=== PATIENT | male | born 1960 | race Caucasian/White ===

== ENCOUNTER 2025-06-02 08:03 | Outpatient (REF) | payer BC, SELFPAY ==
--- NOTE | ~2025-06-02 | XR_ITS ---
Exam: X-ray, bilateral knees.XR KNEE 3 VIEWS BILATERAL TECHNIQUE: Three views lower extremity joint, bilateral knees INDICATION: bilateral knee pain COMPARISON: None available. FINDINGS: RIGHT KNEE: There is subtle narrowing of the medial joint space. The intercondylar tubercles are peaked. There are small marginal osteophytes along the medial joint line. There is a small enthesophyte at superior patella. There is no joint effusion. LEFT KNEE: There is mild narrowing of the medial joint space. There are small marginal osteophytes along the medial joint line. There is no joint effusion. There is superior patellar enthesophyte. XR/XR Knee Efra 3V IMPRESSION: Right knee: Mild changes consistent with osteoarthritis. Left knee: Minimal changes consistent with osteoarthritis. Electronically signed by: Kelby Sorenson MD 06/02/2025 09:39 AM INA
[2025-06-02 09:22] LABS: MANUAL DIFF FLAG NO
[2025-06-02 09:45] LABS: Hematocrit 54.9 % (42.0-52.0); Hemoglobin 18.4 g/dl (14.0-18.0); Imm Gran Abs Auto 0.02 X10*3/uL (0.00-0.03); Imm Gran Pct Auto 0.3 % (0.0-0.4); Lymphocytes Absolute Auto 1.9 X10*3/uL (1.2-4.9); Mean Corpuscular HGB Conc 33.5 g/dl (31.0-36.0); Mean Corpuscular Hemoglobin 28.2 pg (27.0-33.0); Mean Corpuscular Volume 84.2 fL (80.0-98.0); NRBC Abs Auto 0.000 X10*3/uL (0.0-0.012); NRBC Pct Auto 0.0 /100WBC (0.0-0.2); Platelet Count 189 X10*3/uL (160-400); Red Blood Count 6.52 X10*6/uL (4.60-5.80); White Blood Count 5.8 X10*3/uL (4.8-10.8)
--- OUTSIDE RECORDS SUMMARY | 2025-06-02 09:46 | XMS_ITS | Data Portability ---
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 Otologic exam on the right shows translucent TM with well aerated middle ear space. Previous [place] prosthesis continues to be eroding through TM but there is no retraction or perforation of the drum. Audiometric testing was obtained today showing closure of conductive gap on the left side with only mild mixed loss in the higher tones. Recommended he have his hearing aids adjusted. Will keep his appointment as scheduled with Dr. Bond. All questions were answered. [email or web address] Not available 11/26/2023 15:39:09 01/15/2024 01/15/2024 Both ears appear stable today with retraction of the right and prosthesis exposure on the left. Currently he is quite pleased with how his ears are feeling and he is very happy with his amplification devices. At this point the ears appear to be in a steady state and I would not recommend any additional intervention. Recommend follow-up in 1 year for surveillance and he will continue to follow-up with [place] in audiology for hearing aid maintenance. [email or web address] Not available 01/15/2024 09:19:43 01/13/2025 01/13/2025 Both ears appear stable today with retraction of the right and prosthesis exposure on the left. On the left side, there was some debris collection and purulence around the partially extruded prosthesis. Recommend 7 days of topical Ciprodex drops to be used twice a day. He will let me know if he has any residual symptoms following treatment. Currently he is quite pleased with how his ears are feeling and he is very happy with his amplification devices. At this point the ears appear to be in a steady state and I would not recommend any additional intervention. Recommend follow-up in 1 year for surveillance and he will continue to follow-up with [facility] in audiology for hearing aid maintenance. [email or web address] Not available 01/13/2025 09:23:59 Plan of Treatment Reminders Order Date Submit Date Provider Last Modified By Organization Details Last Modified Time Details Appointments Establish ed 10 2025 08:30A M RICHARD BOND MD Not available Not available Not available Lab None recorded. Referral None recorded. Procedures None recorded. Surgeries None recorded. Imaging None recorded. Medication Orders ciproflox acin 0.3 %-dexamet hasone 0.1 % ear drops,rubin pension 2024 025 [facility] #[id number], [address] [place] [address], [id number], 01/13/2025 09:21:19 Patient TargetsNo targets recorded. Patient InstructionsNo instructions recorded. Reason for Referral None Reported. Results Created Date Observation Date Name Description Value Unit Range Abnormal Flag Note LastModifiedBy Organization Detail LastModifiedTime 11/27/19 24 11/26/2023 audio gram No observ ation record ed. [email or web address] Not Available 2023 15:50:10 02/18/20 24 08/21/2023 imagi ng/di agnos tic resul t No observ ation record ed. [email or web address] Not Available 05:13:09 02/18/20 24 01/14/2023 imagi ng/di agnos tic resul t No observ ation record ed. [email or web address] Not Available 05:13:46 02/18/20 24 01/14/2023 imagi ng/di agnos tic resul t No observ ation record ed. [email or web address] Not Available 05:13:48 02/18/2001/14/2023 imagi ng/di agnos tic resul t No observ ation record ed. [email or web address] Not Available 05:13:54 02/18/20 24 08/12/2023 audio gram No observ ation record ed. [email or web address] Not Available 05:14:23 02/18/20 24 09/24/2023 audio gram No observ ation record ed. [email or web address] Not Available 05:14:29 02/18/20 24 03/14/2023 audio gram No observ ation record ed. [email or web address] Not Available 05:14:53 02/18/20 24 03/25/2023 audio gram No observ ation record ed. [email or web address] Not Available 05:15:03 02/18/20 24 04/11/2023 audio gram No observ ation record ed. [email or web address] Not Available 05:15:05 02/18/2005/02/2023 audio gram No observ ation record ed. [email or web address] Not Available 05:15:08 Result Notes None recorded. 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, nasal cavity and accessor y sinuses; Note: Date Diagnose d: 7 6:19 PM (D14.0) Not Available [facility] 4 02:49:52 Acute myringit is of right ear 22151188393 29062 Completed 201701/30/2024 Acute myringit is, right ear; Note: Date Diagnose d: 8 4:04 PM (H73.001 ) Not Available [facility] 4 02:49:55 Bilatera l disorder of Eustachi an tubes 43522129703 04561 Active 2017 Other specifie d disorder s of Eustachi an tube, bilatera l; Note: Date Diagnose d: 8 4:04 PM (H69.83) Not Available [facility] 4 02:49:53 Mixed conducti ve and sensorin eural hearing loss, bilatera l 817547292 Active 2017 Mixed conducti ve and sensorin eural hearing loss, bilatera l; Note: Date Diagnose d: 8 4:50 PM (H90.6) Not Available [facility] 4 02:49:56 Otorrhea of right ear 48953337423 13571 Completed 201801/30/2024 Otorrhea , right ear; Note: Date Diagnose d: 03/04/2019 2:56 PM (H92.11) Otorrh ea, right ear; Note: Date Diagnose d: 8 4:04 PM (H92.11) ; Start Date : 03/24/20 Not Available [facility] 4 02:49:55 Superfic ial mycosis 543483226 Completed 201801/30/2024 Other specifie d superfic ial mycoses; Note: Date Diagnose d: 9 5:39 PM (B36.8) Not Available [facility] 4 02:49:56 Finding of device of ear 650462042 Active 2022 Presence of other otologic al and audiolog ical implants ; Note: Date Diagnose d: 3 12:54 PM (Z96.29) Not Available [facility] 4 02:49:51 Chronic serous otitis media of right ear 744932521 Active 2022 Chronic serous otitis media, right ear; Note: Date Diagnose d: 3 12:53 PM (H65.21) Not Available [facility] 4 02:49:56 Adhesive middle ear disease 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 Active 2022 Adhesive middle ear disease, bilatera l; Note: Date Diagnose d: 3 11:16 AM (H74.13) Not Available [facility] 4 02:49:54 Partial loss of ear ossicles 66859520 Active 2023 Partial loss of ear ossicles , bilatera l; Note: Date Diagnose d: 4 9:58 AM (H74.323 ) Not Available [facility] 4 02:49:53 Otorrhea of left ear 09656643490 36048 Completed 202301/30/2024 Otorrhea , left ear; Note: Date Diagnose d: 4 9:58 AM (H92.12) RICHARD BOND MD 100 [facility] 100, [place], [address] , [facility] 5 09:20:44 Acute serous otitis media of left ear 59677607400 90686 Active 2023 Acute serous otitis media, left ear; Note: Date Diagnose d: 4 2:46 PM (H65.02) Not Available [facility] 4 02:49:54 Mixed conducti ve AND sensorin eural hearing loss 95198616 Active 2023 LIU CRUZ, AUD 100 [facility] 100, [place], [address] , [place] - [facility] 4 15:16:00 Sensorin eural hearing loss in right ear 01433617959 100 Active 2023 RICHARD BOND MD 100 [facility] 100, [place], [address] , [place] - [facility] 4 09:11:42 Sensorin eural hearing loss of bilatera l ears 441344224 Active 2024 JAMIA CAROLINA, AUD 100 [facility] 100, [place], [address] , [place] - [facility] 5 10:54:24 Otorrhea of left ear 88890274036 29220 Active 2024 Otorrhea , left ear; Note: Date Diagnose d: 4 9:58 AM (H92.12) RICHARD BOND MD 100 [facility] 100, [place], [address] , [place] - [facility] 5 09:20:44 Problem Notes None recorded. Procedures Surgical History Date Name Laterality Status Provider Name and Address Organization Details Recorded Time 5 EAC debris removal with microscope completed RICHARD BOND MD 100 [facility],[address], [address], [place] - [facility] 01/13/2025 09:24:12 4 Comp Audio with Tymps - 77970 & 87179 completed NASREEN ESQUIVEL 100 [facility] 100, [place], [address], [place] - [facility] 11/26/2023 15:13:54 Kidney Stone Removal completed Edith Dee [place] - [facility] 01/15/2024 09:02:15 Imaging Results None recorded. Procedure Notes None recorded. Medical Equipment None Reported. Allergies No known drug allergies Medications Name Sig Start Date Stop Date Status Note LastModified by Organization Details LastModified Time amoxicill in 500 mg capsule TAKE 1 CAPSULE BY MOUTH THREE TIMES A DAY FOR 10 DAYS 01/14 completed Not Available Not Available Not Available promethaz ine-DM 6.25 mg-15 mg/5 mL oral syrup TAKE 5 MLS BY MOUTH EVERY 6 HOURS NEEDED FOR COUGH, NOT TO EXCEED 6 DOSES/DA Y 01/10 completed Not Available Not Available Not Available neomycin- polymyxin -hydrocor t 3.5 mg/mL-10, 000 unit/mL-1 % ear solution 07/17 completed Medicati on ID: [id number] D uration Value: 7 Brand Name: neomycin -polymyx in-HC Se nd Method: E-Prescr ibed Sub s Allowed: subs OK Medic ationGen ericName : neomycin -polymyx in-HC Not Available Not Available Not Available atorvasta tin 20 mg tablet 2024 active Not Available Not Available Not Avai lable azithromy sugey 250 mg tablet TAKE 2 TABLETS ON DAY ONE. TAKE 1 TABLET DAILY ON DAYS 2-5. 01/10 completed Not Available Not Available Not Available benzonata te 200 mg capsule TAKE 1 CAPSULE BY MOUTH 3 TIMES A DAY FOR 14 DAYS NEEDED FOR COUGH 01/10 completed Not Available Not Available Not Available prednison e 20 mg tablet TAKE 2 TABLETS BY MOUTH EVERY DAY FOR 5 DAYS 01/10 completed Not Available Not Available Not Available sildenafi l 100 mg tablet 07/17 completed Medicati on ID: [id number] D uration Value: 30 Brand Name: analia singh Send Method: E-Prescr ibed Sub s Allowed: subs OK Medic ationGen ericName : sildenaf il Not Available Not Available Not Available metformin 1,000 mg tablet active Not Available Not Available Not Available tacrolimu s 0.03 % topical ointment 01/14 completed Medicati on ID: [id number] B rand Name: tacrolim us Send Method: E-Prescr ibed Sub s Allowed: subs OK Medic ationGen ericName : tacrolim us Medic ation ID: [id number] B rand Name: tacrolim us Send Method: E-Prescr ibed Sub s Allowed: subs OK Medic ationGen ericName : tacrolim us Not Available Not Available Not Available clotrimaz ole 1 % topical solution 01/14 completed Medicati on ID: [id number] D uration Value: 14 Prescri bed By Name: TAMERA Jonhson nd Name: jackson gomez Method: E-Prescr ibed Sub s Allowed: subs OK Speci al Instruct ion: 5 drops to affected ear twice a day Medi cationGe nericNam e: clotrima zole Med ication ID: [id number] D uration Value: 14 Prescri bed By Name: TAMERA Johnson nd Name: clotrima zole Sen d Method: E-Prescr ibed Sub s Allowed: subs OK Speci al Instruct ion: 5 drops to affected ear twice a day Medi cationGe nericNam e: clotrima zole Not Available Not Available Not Available omeprazol e 20 mg capsule,d elayed release active Not Available Not Available Not Available codeine 10 mg-guaife nesin 100 mg/5 mL oral liquid 10 ML BY MOUTH DAILY AT BEDTIME NEEDED FOR COUGH 01/10 completed Not Available Not Available Not Available mometason e 0.1 % topical ointment 01/10 completed Not Available Not Available Not Available Microlet Lancet 01/13 completed Not Available Not Available Not Available amoxicill in 875 mg-potass ium clavulana te 125 mg tablet TAKE 1 TABLET BY MOUTH EVERY 12 HOURS FOR 10 DAYS 01/10 completed Not Available Not Available Not Available Laxative (bisacody l) 5 mg tablet,de layed release 01/10 completed Not Available Not Available Not Available TobraDex 0.3 %-0.1 % eye drops,rubin pension 4 drop 01/14 completed Medicati on ID: [id number] D uration Value: 14 Prescri bed By Name: TAMERA Johnson nd Name: TobraDex Send Method: E-Prescr ibed Sub s Allowed: subs OK Speci al Instruct ion: 4 drops in affected ear bid Medi cationGe nericNam e: TobraDex Medicat ion ID: [id number] D uration Value: 14 Prescri bed By Name: TAMERA Johnson nd Name: TobraDex Send Method: E-Prescr ibed Sub s Allowed: subs OK Speci al Instruct ion: 4 drops in affected ear bid Medi cationGe nericNam e: TobraDex Not Available Not Available Not Available ciproflox acin 0.3 %-dexamet hasone 0.1 % ear drops,rubin pension INSTILL 4 DROPS TWICE A DAY INTO LEFT EAR FOR 7 DAYS. active Not Available Not Available No t Available Ranitidin e Hcl 07/17 completed Medicati on ID: [id number] D uration Value: 30 Brand Name: ranitidi ne hcl Send Method: E-Prescr ibed Sub s Allowed: subs OK Medic ationGen ericName : ranitidi ne hcl Not Available Not Available Not Available GaviLyte- G 236 gram-22.7 4 gram-6.74 gram-5.86 gram oral solution 01/13 completed Not Available Not Available Not Available Contour Next Test Strips 01/13 completed Not Available Not Available Not Available Jardiance 25 mg tablet active Medicati on ID: [id number] B rand Name: Jardianc e Send Method: E-Prescr ibed Sub s Allowed: subs OK Medic ationGen ericName : Zoe guzman Not Available Not Available Not Available Trulicity 1.5 mg/0.5 mL subcutane ous pen injector 01/13 completed Not Available Not Available Not Available Contour Next One Meter 01/13 completed Not Available Not Available Not Available Trulicity 3 mg/0.5 mL subcutane ous pen injector 10/29 completed Not Available Not Available Not Available Sodium Fluoride 5000 Dry Mouth 1.1 % dental paste BRUSH 1 TO 2 TIMES PER DAY. DO NOT RINSE 01/13 completed Not Available Not Available Not Available Skyrizi 150 mg/mL subcutane ous pen injector active Not Available Not Available Not Available Mounjaro 15 mg/0.5 mL subcutane ous pen injector 2024 active Not Available Not Available Not Avai lable Vitals None Recorded Social History Question Answer Notes LastModified by Organizat ion Details LastModified Time Tobacco Smoking Status Former Smoker Edith juarez [place] - [facility] 01/13/2025 09:00:04 How Many Years Have You Consumed Alcohol? 48 [email or web address] Information not available 01/13/2025 What Type Of Ict Teacher Do You Use? None [email or web address] Information not available 01/13/2025 When Did You Quit Smoking? 16+yearssinc elastcigaret te [email or web address] Information not available 01/13/2025 Do You Have Any Pets? No [email or web address] Information not available 01/13/2025 At What Age Did You Start Smoking Tobacco? 17 [email or web address] Information not available 01/13/2025 Are You Passively Exposed To Smoke? No [email or web address] Information not available 01/13/2025 Are There Any Smokers In Your House? No [email or web address] Information not available 01/13/2025 How Much Tobacco Do You Smoke? 1 PPD [email or web address] Information not available 01/13/2025 How Many Years Have You Smoked Tobacco? 17 [email or web address] Information not available 01/13/2025 Sex: Unknown Functional Status Question Answer Note LastModified by Organization Details LastModified Time How many times per week do you consume alcohol? Less than 1 time per week [email or web address] Inform ation not available 01/13/2025 Do you use any illicit or recreational drugs? No [email or web address] Information not available 01/13/2025 Do you or have you ever used any other forms of tobacco or nicotine? No [email or web address] Information not available 01/13/2025 What is your level of alcohol consumption? Occasional Information not available 01/13/2025 What type of noise exposure are you exposed to? noExposureToExcessiveNoise [email or web address] Infor mation not available 01/13/2025 Mental Status None recorded. Family History Nothing Reported. Medical History Condition Response Allergies/Hayfever N Heart Problems N Anxiety N Tonsil Infections N Emphysema N Migraines N Thyroid Problems N Glaucoma N Depression N COPD N Developmental Delay N Nasal or Sinus Problems N Anemia N Immune System Disorder N Anesthesia Complications N Heart Attack ([place]) N Other Skin Condition Y Diabetes Y Rhinitis N Bleeding Disorder N Food Allergy N Arthritis N Hearing Loss Y Hyperlipidemia N Cancer N Stroke N Dementia N Nasal polyps N Asthma N High Cholesterol N Sleep Disorder N GERD/Reflux Y Liver Disease N Headaches N Fibromyalgia N Hypertension N Speech Delay N Kidney Disease N Past Encounters Encounter ID Performer Location Encounter Start Date Encounter Closed Date Diagnosis/Indication Diagnosis SNOMED-CT Code Diagnosis ICD10 Code Diagnosis IMO Codes Diagnosis Note [id number] MILA CASTELLON PA-C [facility] [address] [address] 11/26/2023 14:30:42 11/26/2023 15:33:46 Sensorineural hearing loss [id number] H90.A21 Audiologic al evaluation results:Ri ght ear:Mild to moderate SNHL with excellent speech discrimina tion.Left ear:Mild to profound MHL with excellent speech discrimina tion. Tympanomet ry:Right Ear:Type AdLeft Ear:Type Ad Mixed cond uctive AND sensorineural hearing loss 54632836 H90.A32 [id number] NASREEN SKINNER [place] [facility] [place] [address] [place] [address] [address] 12/25/2023 11:30:20 01/19/2024 14:58:11 Sensorineural hearing loss of bilateral ears 607905615 H90.3 [id number] RICHARD BOND MD [facility] [address] [address] 01/15/2024 08:57:42 01/15/2024 09:19:03 Adhesive middle ear disease 3689498 H74.13 Mixed cond uctive AND sensorineural hearing loss 64257669 H90.A32 Partial lo ss of ear ossicles 56598243 H74.323 Bilateral disorder of Eustachian tubes 0397032902 818882 H69.83 Sensorineu ral hearing loss in right ear 3572049814 9100 H90.A21 [id number] NASREEN SKINNER [facility] [address] [address] 11/01/2024 10:53:58 11/02/2024 18:32:20 Sensorineural hearing loss of bilateral ears 310426142 H90.3 [id number] RICHARD BOND MD [facility] [address] [address] 01/13/2025 08:50:38 01/13/2025 09:23:47 Adhesive middle ear disease 1258485 H74.13 Partial lo ss of ear ossicles 31974808 H74.323 Bilateral disorder of Eustachian tubes 8521166727 443117 H69.83 Sensorineu ral hearing loss in right ear 0288098425 9100 H90.A21 Mixed cond uctive AND sensorineural hearing loss 45739561 H90.A32 Otorrhea of left ear 320 0190333 658046 H92.12 [id number] Health Concerns Section Related Observation LastModified by Organization Detai ls LastModified Time None Recorded Concern Status LastModified by Organization Details LastModified Time None Recorded Advance Directives Directive None Recorded Payers Insurance Date Sequence Insurance Name Policy Number Policy Elliott Covered Member ID Elliott Member ID Guarantor Name 01/13/2025 1 NEREYDA (PPO) [id number] Jolene S Sugey [id number] [place] 11/01/2024 1 [employer]-IMANI ARGUETA (PPO) [id number] Jolene [address] [place] [id number] [place] Notes Date Note Type Note Provider Name and Address Organization Details Recorded Time 4 text/html ROS as noted in the HPI 63-year-old male with longstanding ETD presents following eustachian tube dilation with Dr. Bond. He has not noticed much difference in his hearing but is overall doing well. Has hearing aids which she is very pleased with. JOY RUSSELL MD 100 [facility],[place] [address], [place], [address], [place] - [facility] 11/26/2023 16:45:36 4 text/html Update post op audio in [facility] and reprogrammed aids. Ran real ear. Switched him from small power domes to small vented domes. Gave him extra domes (including small power and med vented in case he runs into any comfort/fit issues). He will call if he needs additional adjs.Brother recently had a heart attack so he has been making many trips to [facility] to visit. NASREEN SKINNER 100 [facility],[place] [address], [place], [address], [facility] - [facility] 12/25/2023 13:01:21 4 text/html Pt with history of chronic ETD and left tympano-ossiculoplasty in 2010. Patient's right ear was noted to have a posterior superior retraction and myringostapediopexy with middle ear effusion. The left ear has been demonstrating retraction around the ossiculoplasty prosthesis and there has been some prosthesis exposure. In light of the signs of chronic eustachian tube dysfunction, patient underwent bilateral balloon dilation of the eustachian tube 10/22/2023. Patient returns today for follow-up. Currently using binaural amplification through our office which was recently adjusted to match his postoperative hearing which is much better. Patient notes no muffled hearing, popping or clicking in either ear. RICHARD BOND MD 100 [facility],[place] [address], [place], [address], [facility] - [facility] 01/15/2024 09:20:18 5 text/html C/o aids slipping out and not being loud enough. Switched him to Version 5 receivers- gave him cerustops along with printed out instructions. Also added anchors and switched him from sm vented to med vented domes. Gave him extra sm, med and large vented domes. Turned up aids per pt request. He will call if he needs any adjs.About to start with a kitchen remodel. NASREEN SKINNER 100 [facility],[place] [address], [place], [address], [place] - [facility] 11/01/2024 10:59:02 text/html Pt with history of chronic ETD and left tympano-ossiculoplasty in 2010. Patient's right ear was noted to have a posterior superior retraction and myringostapediopexy with middle ear effusion. The left ear has been demonstrating retraction around the ossiculoplasty prosthesis and there has been some prosthesis exposure. In light of the signs of chronic eustachian tube dysfunction, patient underwent bilateral balloon dilation of the eustachian tube 10/22/2023. Patient returns today for follow-up. Currently using binaural amplification through our office which was recently adjusted to match his hearing needs. Patient notes no muffled hearing, popping or clicking in either ear. Last audiogram October 2023. RICHARD BOND MD 100 [facility],[place] [address], [place], [address], [facility] - [facility] 01/13/2025 09:24:39
--- OUTSIDE RECORDS SUMMARY | 2025-06-02 09:46 | XMS_ITS | Data Portability ---
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 He had surgery on his achilles in March and has been going to Physical Therapy, he believes he caught Covid there. He has not been taking any steroids. His symptoms began on Wednesday August 05, 2020 and include fevers off-and-on, nausea, poor appetite, body aches specifically backache. He denies any chest pain, shortness of breath or cough. Denies any vomiting or diarrhea. He reports he is staying hydrated and drinking Gatorade and water. Denies any urinary symptoms. No headaches or rashes. Exam: Patient is alert, nontoxic appearing in no apparent distress No erythema or exudate noted in the oropharynx. TMs and canals are clear without any signs of infection. No lymphadenopathy. Moist mucous membranes Normal heart sounds, no peripheral edema. Palpable pulses. Lungs are clear, diminished at bases, no rales, rhonchi or wheezing. Breathing is unlabored. Abdomen is soft, nontender positive bowel sounds. (-) CVA tenderness No rashes DDx considered, but not limited to: Covid 19 virus most likely Flu considered- less likely Pneumonia considered- no cough PE considered- no tachycardia or CP ACS considered- no CP Work up/Results: Physical exam only Plan/Discussion: Discussed with patient and his his symptoms are consistent with the COVID-19 virus. Vitals are stable. Patient encouraged to stay hydrated. Encouraged to self prone as tolerated. Increased appetite as tolerated. Continue to take ibuprofen and Tylenol as needed for back ache and fevers. If he develops trouble breathing or chest pain he should be seen in the emergency department otherwise symptom management reviewed. The patient is advised to make an appt with PCP in 3-5 days to discuss ongoing symptoms/ further management if needed. The patient is also advised to go to the ED immediately for any worsening symptoms. The patient understood and agreed with this plan. The patient was given discharge instructions and all questions were answered prior to DH team departure. In order to obtain further information and compare any laboratory results/values, I have accessed patient records on the [facility] [facility]. This information was pertinent in my medical decision making today. Proper Personal Protective Equipment (PPE), including gloves, eye protection, N95 mask, gown, and shoe covers were donned and doffed appropriately and all equipment cleaned using approved technique with germicidal disposable wipes prior to and after care of this patient according to [facility]'s infection prevention protocols. Time On Scene with Patient: 00:51:17 [id number] Not available 08/11/2020 17:27:59 Plan of Treatment Reminders Order Date Submit Date Provider Last Modified By Organization Details Last Modified Time Details Appointments None record ed. Lab None record ed. Referral None record ed. Procedures None record ed. Surgeries None record ed. Imaging None record ed. Medication Orders None record ed. Patient TargetsNo targets recorded. Patient Instructions Encounter Date Encounter Id Patient Instructions Last Modified By Organization Details Last Modified Time 08/11/2020 [id number] Pre printed instructions provided. What is coronavirus disease 2019? Coronavirus disease 2019 (COVID-19) is a respiratory illness that can spread from person to person. The virus that causes COVID-19 is a novel coronavirus that was first identified during an investigation into an outbreak in [facility]. Can I get COVID-19? Yes. COVID-19 is spreading from person to person in parts of the world. Risk of infection from the virus that causes COVID-19 is higher for people who are close contacts of someone known to have COVID-19, for example household members. Other people at higher risk for infection are those who live in or have recently been in an area with ongoing spread of COVID-19. How does COVID-19 spread? The virus that causes COVID-19 probably emerged from an animal source, but is now spreading from person to person. The virus is thought to spread mainly between people who are in close contact with one another (within about 6 feet) through respiratory droplets produced when an infected person coughs or sneezes. It also may be possible that a person can get COVID-19 by touching a surface or object that has the virus on it and then touching their own mouth, nose or possibly their eyes, but this is not thought to be the main way the virus spreads. What are the symptoms of COVID-19? Patients with COVID-19 have mild to severe respiratory illness with symptoms of: fever cough shortness of breath What are severe complications from this virus? Some patients have pneumonia in both lungs, multi-organ failure and in some cases . People can help protect themselves from respiratory illness with everyday preventative actions. Avoid close contact with people who are sick. Avoid touching your eyes, nose, and mouth with unwashed hands. Wash your hands often with soap and water for at least 20 seconds. Use an alcohol-based hand cold storage supervisor that contains at least 60% alcohol if soap and water are not available If you are sick, to keep from spreading respiratory illness to others, you should Stay home when you are sick. Cover your cough or sneeze with a tissue, then throw the tissue in the trash. Clean and disinfect frequently touched objects and surfaces. Is there a vaccine? There is currently no vaccine to protect against COVID-19. The best way to prevent infection is to take everyday preventive actions, like avoiding close contact with people who are sick and washing your hands often. Is there a treatment? There is no specific antiviral treatment for COVID-19. People with COVID-19 can seek medical care to help relieve symptoms. FOR MORE INFORMATION: [email or web address] Not available 08/11/2020 17:22:28 Reason for Referral None Reported. Procedures Surgical History Date Name Laterality Status Provider Name and Address Organization Details Recorded Time 08/11/19 21 Medication Review completed Betty Wolf NP [address], [place], [address], [place] [facility] 08/11/2020 16:51:20 Imaging Results None recorded. Procedure Notes None recorded. Medical Equipment None Reported. Allergies No known drug allergies Medications Name Sig Start Date Stop Date Status Note LastModified by Organization Details LastModified Time vitamin d3 125 mcg (5000 ut active Not Available Not Available Not Available ibuprofen 800 mg tablet TAKE 1 TABLET BY MOUTH 3 TIMES A DAY WITH FOOD OR MILK active Not Available Not Available No t Available meloxicam 15 mg tablet TAKE 1 TABLET BY MOUTH EVERY DAY active Not Available Not Available No t Available tramadol 50 mg tablet TAKE 1 TABLET BY MOUTH TWICE A DAY NEEDED FOR PAIN CAUTION THIS IS SEDATING active Not Available Not Available No t Available acetaminophe n 500 mg tablet active Not Available Not Available Not Available oxycodone-ac etaminophen 5 mg-325 mg tablet TAKE 1 TABLET BY MOUTH EVERY 6 HOURS NEEDED FOR PAIN active Not Available Not Available No t Available aspirin 325 mg tablet,delay ed release active Not Available Not Available N ot Available cholecalcife rol (vitamin D3) 125 mcg (5,000 unit) capsule active Not Available Not Available Not Available oxycodone 5 mg tablet TAKE 1 TABLET BY MOUTH 3 TIMES A DAY NEEDED FOR PAIN DO NOT DRIVE ON THIS MEDICATION active Not Available Not Available N ot Available Vitals Date Recorded Oxygen saturation Body temperature Heart rate Respiratory rate Systolic And Diastolic Provider Name and Address Organization Details Last Updated DateTime 95 % 98.2 [degF] 72 /min 18 /min 132/62 mm[Hg] Not Available [facility] 16:58:57 Social History Question Answer Notes LastModified by Organizat ion Details LastModified Time Tobacco Smoking Status Never Smoker Betty Wolf NP [address] [place] [address], [address], [place] - [facility] 08/11/2020 16:28:23 How Much Tobacco Do You Smoke? No [email or web address] Information not available 08/11/2020 Sex: Unknown Functional Status None recorded. Mental Status None recorded. Family History Relationship Description Onset Age of this Age Resolved Age Notes LastModified by Organization Details LastModified Time Father Coronary arterioscler osis [email or web address] Not available 2020 17:09:08 Medical History Condition Response Coronary Artery Disease N COPD N Depression N Cancer N Stroke N High Cholesterol N Kidney Disease N Diabetes N Asthma N Pulmonary Embolism N Hypertension N Past Encounters Encounter ID Performer Location Encounter Start Date Encounter Closed Date Diagnosis/Indication Diagnosis SNOMED-CT Code Diagnosis ICD10 Code Diagnosis IMO Codes Diagnosis Note [id number] Betty Wolf NP [facility] [address] [place] [address] 08/11/2020 16:32:53 08/11/2020 18:31:07 COVID-19 [id number] U07.1 Health Concerns Section Related Observation LastModified by Organization Detai ls LastModified Time None Recorded Concern Status LastModified by Organization Details LastModified Time None Recorded Advance Directives Directive None Recorded Payers Insurance Date Sequence Insurance Name Policy Number Policy Elliott Covered Member ID Elliott Member ID Guarantor Name 08/11/2020 1 *SELF PAY* Aly Grayling [id number] Aly Grayling 01/25/2022 1 [employer] [id number] Aly Ashton [id number] Aly Grayling Notes Date Note Type Note Provider Name and Address Organization Details Recorded Time 08/11/2020 text/html COVID-19 Symptoms October 2019Reported by Patient 60yo male who is new to with a PMHx of Barretts esophagus and GERD being seen today for Covid symptoms. His symptoms began Friday08/05/20. He tested positive today. For the past 6 days he has had fevers ranging from 99.8-101.8, nausea, poor appetite, bodyaches & dizziness. He has been drinking gatorade and staying hydrated. Today he reports feeling better and had 2 PB&J sandwiches. He has had no vomitting or diarrhea. No CP, cough or SOB. Betty Wolf NP [address], [place], [address], [place] [facility] 08/11/2020 18:27:47
[2025-06-02 10:20] LABS: Alanine Aminotransferase 31 U/L (0-40); Albumin Level 4.8 g/dL (3.5-5.0); Alkaline Phosphatase 86 U/L (39-117); Anion Gap 12 (12-20); Aspartate Amino Transferase 26 U/L (5-37); Blood Urea Nitrogen 16 mg/dL (9-16); Calcium 9.3 mg/dL (8.4-10.2); Carbon Dioxide 27 mmol/L (22-29); Chloride 107 mmol/L (96-108); Cholesterol 163 mg/dL (<200); Estimated Glomerular Filt Rate > 60; HDL Cholesterol 39 mg/dL (>40); Potassium 4.1 mmol/L (3.3-5.1); Sodium 142 mmol/L (135-145); Total Protein 7.6 g/dL (6.5-8.0); Triglycerides 115 mg/dL (<150)
[2025-06-02 10:43] LABS: PSA,Total (Free>4and<10) 1.01 ng/mL (0.00-4.00)
[2025-06-03 13:57] LABS: Iron 75 mcg/dL (45-160); Percent Iron Saturation 26 % (15-50); Total Iron Binding Capacity 294 mcg/dL (228-428); Unsaturated Iron Binding 219 ug/dL
[2025-06-03 14:11] LABS: Ferritin 629 ng/mL (20-250)
== END 2025-06-02 08:04 | disposition home or self-care (01) ==
LOC: HO.LAB 08:03
PROVIDERS: PCP Internal Medicine; Visit Provider Internal Medicine
DX: Z12.5 Encounter for screening for malignant neoplasm of prostate (principal); D58.2 Other hemoglobinopathies; E78.2 Mixed hyperlipidemia; E11.9 Type 2 diabetes mellitus without complications; E66.9 Obesity, unspecified; N52.9 Male erectile dysfunction, unspecified; M25.561 Pain in right knee; M25.562 Pain in left knee; G89.29 Other chronic pain; Z68.33 Body mass index [BMI] 33.0-33.9, adult
CPT/HCPCS: 36415; 73562; 80053; 80061; 82043; 82570; 82728; 83036; 83540; 84153; 85025; 96127

== ENCOUNTER 2025-06-02 08:03 | Outpatient (AMB) | payer BC, SELFPAY ==
--- NOTE | 2025-06-02 08:06 | MHC.PC.OV ---
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 Accompanied by: Self / Same As Patient Allergies No Known Allergies Allergy (Verified 06/02/25 08:07) Medication List - Last Reconciled 06/02/25 by Sandra Qureshi MD atorvastatin 20 mg PO DAILY empagliflozin (Jardiance) 25 mg PO DAILY lancets (Microlet Lancet) As directed metformin 1,000 mg PO BID omeprazole 20 mg PO DAILY risankizumab-rzaa (Skyrizi) mg subcut tirzepatide (Mounjaro) mg subcut Tobacco use date assessed: 06/02/25 Fall risk assessment: No Falls in past year Last assessed Fall Risk: 06/02/25 Dental Screening Dental Screen Date: 06/02/25 Did you have a dental visit in the last 12 months?: Yes Did you have a dental problem in the last 6 months where you did not have access to dental care?: No HPI HPI Comments History of Present Illness Details The patient is a 65 year old male presenting to re-establish care and for follow-up on diabetes. Type 2 Diabetes Mellitus: The patient is following up on his diabetes management and has experienced weight loss, down from 250 lbs to 235 lbs recently, which he attributes to Mounjaro. He notes a decreased appetite since starting the medication, though he has not been more physically active. His fasting morning blood glucose levels are typically between 130 and 145 mg/dL, and his most recent reading was 142 mg/dL. His last A1c was 6.3 in October 2024. He admits to late-night snacking on items such as peanut butter pretzels and peanut M&Ms, which he notices affects his morning glucose readings. Chronic Diarrhea: The patient reports experiencing daily liquid diarrhea for the past 1.5 to 2 years. The episodes occur within 30 minutes of eating, regardless of the food consumed, and he denies any blood in the stool. He is prescribed metformin 1000 mg twice a day but has been taking only one pill daily. His last colonoscopy was within the last year and was normal. 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 Oliveira's esophagus- followed by GI Dr. Gilliland, has had normal endoscopies in recent years Psoriasis: The patient uses Skyrizi for psoriasis, administered every 12 weeks. He reports excellent response to the treatment, with complete resolution of skin markings and no flaking. Bilateral Knee Pain: The patient reports significant bilateral knee pain, primarily with motions such as bending down and standing up. He has a history of jobs requiring prolonged standing, which he believes contributed to the issue. The pain can be severe enough that he avoids certain movements. His left leg swells by the afternoon on days he is active, but this resolves with about an hour of elevation. Social History: - Hydration: Drinks approximately 2 gallons of water per day. [facility] Medical History (Updated 06/03/25 @ 17:29 by Sandra Qureshi MD) Elevated hemoglobin Bilateral knee pain Barretts esophagus Mixed hyperlipidemia Type 2 diabetes mellitus in patient with obesity Psoriasis Surgical History H/O toe surgery History of ear surgery History of colonoscopy (~09/17/23) Family History (Updated 06/02/25 @ 08:17 by Keyonna Alejo MA) Maternal Uncle No problems noted. Mother Hx of CABG Primary hypertension Father No problems noted. Other Borderline diabetes Mixed hyperlipidemia Stroke Social History Housing: House Patient Tobacco Use Status: Former Tobacco user e-Cigarette/Vaping Use: Former Use service: No Current occupational status: retired Cognitive needs: No Hearing needs: No Vision needs: No Questionnaire PHQ-9 Over the last 2 weeks, how often have you been bothered by any of the following problems? 1. Little interest or pleasure in doing things: not at all 2. Feeling down, depressed, or hopeless: not at all 3. Trouble falling or staying asleep, or sleeping too much: not at all 4. Feeling tired or having little energy: not at all 5. Poor appetite or overeating: not at all 6. Feeling bad about yourself - or that you are a failure or have let yourself or your family down: not at all 7. Trouble concentrating on things, such as reading the newspaper or watching television: not at all 8. Moving or speaking so slowly that other people could have noticed. Or the opposite - being so fidgety or restless that you have been moving around a lot more than usual: not at all 9. Thoughts that you would be better off or of hurting yourself in some way: not at all Total score: 0 Depression Screening Interpretation: Negative Depression Screening Done: Yes Source: Developed by Drs. Toy Mejia, Katharine Gruber, Irwin Larson and colleagues, with an educational royer from [employer]. Thrive Questionnaire Date Thrive assessed: 06/02/25 I am a: Patient Within the past 12 months, did the food you bought not last and you didn't have the money to get more?: Never true Within the past 12 months, did you worry whether your food would run out before you got money to buy more?: Never true Do you have trouble paying for medicines?: No Do you have trouble getting transportation to medical appointments?: No Do you have trouble paying your heating and electricity bill?: No Do you have trouble taking care of your child, family member or friend?: No Do you have trouble with day-to-day activities such as bathing, preparing meals, shopping, managing finances, etc.?: No Are you currently unemployed and looking for a job?: No Are you interested in more education?: No THRIVE Score: 0 AUDIT C Alcohol Use Questionnaire (AUDIT-C) 1. How often do you have a drink containing alcohol?: Monthly or less 2. How many drinks containing alcohol do you have on a typical day when you are drinking?: 1 or 2 3. How often do you have six or more drinks on one occasion?: Less than monthly Total Score: 2 KAEL-7 AMB Questionnaire KAEL-7 Date KAEL - 7 assessed: 06/02/25 Feeling nervous, anxious, or on edge: 0 = Not at all Not being able to stop or control worryin = Not at all Worrying too much about different things: 0 = Not at all Trouble relaxin = Not at all Being so restless that it is hard to sit still: 0 = Not at all Becoming easily annoyed or irritable: 0 = Not at all Feeling afraid as if something awful might happen: 0 = Not at all Total KAEL-7 score (0-4 normal; 5-9 mild; 10-14 moderate; 15-21 severe): 0 Source: Developed by Drs. Toy Mejia, Katharine Gruber, Irwin Larson and colleagues, with an educational royer from [employer]. Review of Systems Narrative Review of Systems - Constitutional: per hpi - Gastrointestinal: per hpi - Denies blood in stool. - Genitourinary: Denies dysuria. - Musculoskeletal: Reports bilateral knee pain that limits his ability to bend down. - Reports left leg swelling after prolonged activity. Physical exam (Primary Care) Vital Signs: Last Vital Signs Temp 98 F 06/02/25 08:08 Pulse 71 06/02/25 08:08 BP 120/76 06/02/25 08:08 Pulse Ox 96 06/02/25 08:08 Oxygen Delivery Method Room Air 06/02/25 08:08 BMI result Body Mass Index 33.1 Tobacco/Smoking Status: Tobacco use Status Tobacco use date assessed 06/02/25 06/02/25 08:18 Patient Tobacco Use Status Former Tobacco user 06/02/25 08:18 e-Cigarette/Vaping Use Former Use 06/02/25 08:18 PHQ-9: PHQ-9 Score PHQ-9: Total score 0 06/02/25 09:11 Depression Screening Interpretation: Negative Thrive Assessment: Date of Thrive Assessment Date Thrive assessed 06/02/25 06/02/25 08:18 Narrative Physical Exam - Respiratory: Lungs are clear to auscultation bilaterally with no wheezing. -Cardiovascular: Regular rhythm and normal sounds. - A soft murmur was auscultated. - Abdomen: Soft and non-tender with positive bowel sounds. - Extremities: No edema noted in the legs. Coding Level of Care Code Est Pt Level 4 (35617) Complex visit Add On G2211 Diagnoses Type 2 diabetes mellitus in patient with obesity E11.9; E66.9 Chronic pain of both knees M25.561; M25.562; G89.29 Chronicity: chronic Assessment & Plan Assessment & Plan (1) Type 2 diabetes mellitus in patient with obesity: Code(s): E11.9 - Type 2 diabetes mellitus without complications; E66.9 - Obesity, unspecified Category: Medical (2) Bilateral knee pain: Code(s): M25.561 - Pain in right knee; M25.562 - Pain in left knee Category: Medical Qualifiers: Chronicity: chronic Qualified Code(s): M25.561 - Pain in right knee; M25.562 - Pain in left knee; G89.29 - Other chronic pain Plan Assessment and Plan 1. Type 2 Diabetes Mellitus - The patient's diabetes is managed with Mounjaro, Jardiance, and metformin. - He has achieved significant weight loss, and his last A1c was 6.3. - His fasting glucose runs in the 130-145 range. - Plan includes ordering labs including an A1c. - He was counseled on diet, specifically avoiding late-night snacks like peanut M&Ms. 2. Chronic Diarrhea - This has been ongoing for 1.5-2 years and is likely a side effect of his medications - Plan is to await A1c results; if stable, we will trial a 2-week cessation of metformin to assess for symptom resolution. - If diarrhea persists can consider switching to metformin ER versus a trial off Jardiance will be considered. 3. Bilateral Knee Pain - The patient's symptoms are suggestive of possible osteoarthritis, possibly [id number], which limits his daily function. - Plan is to obtain baseline bilateral knee X-rays to assess the severity. - Recommended conservative management with a heating pad for stiffness. 4. Psoriasis - The condition is well-controlled with Skyrizi injections. - Plan is to continue the current treatment regimen. 5. Health Maintenance - The patient is up to date on his flu and COVID-19 vaccinations. - Next annual physical is scheduled for November 2025 - He was provided with information to sign up for the patient portal for communication. Plan - Order labs, including an A1c, to be drawn today. - Order bilateral knee X-rays to be done today. - Will review A1c results and then determine the plan for managing diarrhea, which will likely involve a trial off metformin for two weeks. - Continue current medications including Mounjaro, Jardiance, and Skyrizi. - Counseled patient on dietary changes, including avoiding peanut M&Ms and salty pretzels to help manage blood sugar. Discussion Notes I discussed with the patient that his chronic daily diarrhea is possibly a side effect of a medication potentially metformin. I explained that after his lab results are back, specifically his A1c, we will likely conduct a trial where he stops taking metformin for about two weeks to see if the diarrhea resolves. I recommended getting baseline X-rays to assess the condition of his knees. For management, I suggested using a heating pad on his knees for stiffness. I counseled him on the importance of diet, encouraging him to stop eating peanut M&Ms and salty pretzels to better control his blood sugar and blood pressure. Patient Instructions - Please go to the lab to have your blood drawn today. - Please go to the radiology department to have X-rays of both knees taken today. - Continue taking all your medications as you currently are. - Do not stop any medication until you receive instructions from me. - Try to avoid snacking on peanut M&Ms and salty peanut butter pretzels, as these can raise your blood sugar and blood pressure. - For stiff knees after a long day, you can use a heating pad wrapped around them. - If your knees become swollen, use ice instead. Orders: Orders PSA,Total (Free>4and<10) 06/02/25 E11.9 - Type 2 diabetes mellitus without complications, E66.9 - Obesity, unspecified, E78.2 - Mixed hyperlipidemia, N52.9 - Male erectile dysfunction, unspecified Complete Blood Count Auto Diff 06/02/25 E11.9 - Type 2 diabetes mellitus without complications, E66.9 - Obesity, unspecified, E78.2 - Mixed hyperlipidemia Comprehensive Met. Panel 06/02/25 E11.9 - Type 2 diabetes mellitus without complications, E66.9 - Obesity, unspecified, E78.2 - Mixed hyperlipidemia Lipid Panel 06/02/25 E11.9 - Type 2 diabetes mellitus without complications, E66.9 - Obesity, unspecified, E78.2 - Mixed hyperlipidemia Microalbumin, Random (w Creat) 06/02/25 E11.9 - Type 2 diabetes mellitus without complications, E66.9 - Obesity, unspecified, E78.2 - Mixed hyperlipidemia Hemoglobin A1c 06/02/25 E11.9 - Type 2 diabetes mellitus without complications, E66.9 - Obesity, unspecified, E78.2 - Mixed hyperlipidemia XR Knee Efra 3V 06/02/25 M25.561 - Pain in right knee, M25.562 - Pain in left knee Medications: New sildenafil (Viagra) administer 30 minutes to 4 hours before activity 100 mg PO DAILY PRN 30 tabs 5RF sexual activity
[2025-06-02 08:08] VITALS: BP 120/76; PULSE 71; TEMP 36.6; O2SAT 96; BMI 33.1
== END 2025-06-02 08:55 | disposition home or self-care (01) ==
LOC: HO.HMCHD 08:03
PROVIDERS: PCP Internal Medicine; Visit Provider Internal Medicine
DX: E11.9 Type 2 diabetes mellitus without complications (principal); E66.9 Obesity, unspecified; M25.561 Pain in right knee; M25.562 Pain in left knee; G89.29 Other chronic pain

== ENCOUNTER → 2025-06-02 09:23 | Outpatient (BNV) | payer BC, SELFPAY | PROVIDERS: PCP Internal Medicine; Visit Provider Radiology Diagnostic Radiology | DX: M25.561 Pain in right knee (principal); M25.562 Pain in left knee | CPT/HCPCS: 73562 ==

== ENCOUNTER 2025-06-20 07:57 | Outpatient (REF) | payer BC, SELFPAY ==
--- NOTE | ~2025-06-20 | US_ITS ---
CLINICAL HISTORY: R79.89 - Other specified abnormal findings of blood chemistry Limited abdominal ultrasound Comparison: None available Findings: The liver is normal in size, measuring 15.0 cm in length. Normal echogenicity without focal lesions. Normal hepatopetal flow is seen within the portal vein. The common bile duct is mildly dilated, measuring 0.8 cm. No cholelithiasis. No wall thickening or pericholecystic fluid. Negative sonographic Capone sign. The right kidney is normal in echogenicity and size, measuring 11.7 cm in length. Unremarkable limited evaluation of the pancreas. Impression: Negative for acute cholecystitis. Dilation of the common bile duct. Correlate with laboratory values and consider further evaluation with MRCP. This document has been electronically signed by: Prerna Amaya MD on 06/21/2025 13:56:18
--- OUTSIDE RECORDS SUMMARY | 2025-06-20 08:01 | XMS_ITS | Data Portability ---
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 Bond. All questions were answered. [email or web address] Not available 11/26/2023 15:39:09 01/15/2024 01/15/2024 Both [...] [place] in audiology for hearing aid maintenance. [email or web address] Not available 01/15/2024 09:19:43 01/13/2025 01/13/2025 Both [...] [place] in audiology for hearing aid maintenance. [email or web address] Not available 01/13/2025 09:23:59 Plan of Treatment [...] 0.1 % ear drops,rubin pension [address] [id number], [address] [place] [address], [id number], 01/13/2025 09:21:19 Patient TargetsNo targets recorded. Patient [...] nose, middle ear and accessor y sinuses 045230115 Active 2016 Benign neoplasm of middle ear, nasal cavity and accessor y sinuses; Note: Date Diagnose d: 7 6:19 PM (D14.0) Not Available [facility] 4 02:49:52 Acute myringit is of right ear [id number] 14716 Completed 201701/30/2024 Acute myringit is, right ear; Note: Date Diagnose d: 8 4:04 PM (H73.001 ) Not Available [facility] 4 02:49:55 Bilatera l disorder of Eustachi an tubes 12854730245 68421 Active 2017 Other specifie d disorder s of Eustachi an tube, bilatera l; Note: Date Diagnose d: 8 4:04 PM (H69.83) Not Available [facility] 4 02:49:53 Mixed conducti ve and sensorin eural hearing loss, bilatera l 264419824 Active 2017 Mixed conducti ve and sensorin eural hearing loss, bilatera l; Note: Date Diagnose d: 8 4:50 PM (H90.6) Not Available [facility] 4 02:49:56 Otorrhea of right ear 85159865667 45686 Completed 201801/30/2024 Otorrhea , right ear; Note: Date Diagnose d: 03/04/2019 2:56 PM (H92.11) Otorrh ea, right ear; Note: Date Diagnose d: 8 4:04 PM (H92.11) ; Start Date : 03/24/20 Not Available [facility] 4 02:49:55 Superfic ial mycosis 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 Completed 201801/30/2024 Other specifie d superfic ial mycoses; Note: Date Diagnose d: 9 5:39 PM (B36.8) Not Available [facility] 4 02:49:56 Finding of device of ear 996653092 Active 2022 Presence of other otologic al and audiolog ical implants ; Note: Date Diagnose d: 3 12:54 PM (Z96.29) Not Available [facility] 4 02:49:51 Chronic serous otitis media of right ear 254215148 Active 2022 Chronic serous otitis media, right ear; Note: Date Diagnose d: 3 12:53 PM (H65.21) Not Available [facility] 4 02:49:56 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 100, [place], [address] , [facility] 5 09:20:44 Acute serous otitis media of left ear 65637653286 81932 Active 2023 Acute serous otitis media, left ear; Note: Date Diagnose d: 4 2:46 PM (H65.02) Not Available [facility] 4 02:49:54 Mixed conducti ve AND sensorin eural hearing loss 15031278 Active 2023 LIU CRUZ, AUD 100 [facility] 100, [place], [address] , [place] - [facility] 4 15:16:00 Sensorin eural hearing loss in right ear 64960979833 100 Active 2023 RICHARD BOND MD 100 [facility] 100, [place], [address] , [place] - [facility] 4 09:11:42 Sensorin eural hearing loss of bilatera l ears 864624049 Active 2024 JAMIA CAROLINA, AUD 100 [facility] 100, [place], [address] , [place] - [facility] 5 10:54:24 Otorrhea of left ear 11107477769 86315 Active 2024 Otorrhea , left ear; Note: Date Diagnose d: 4 9:58 AM (H92.12) RICHARD BOND MD 100 [facility] 100, [place], [address] , [place] - [facility] 5 09:20:44 Problem Notes None recorded. Procedures Surgical History Date Name Laterality Status Provider Name and Address Organization Details Recorded Time 5 EAC debris removal with microscope completed RICHARD BOND MD 100 [facility],[address], [address], [place] - [facility] 01/13/2025 09:24:12 4 Comp Audio with Tymps - 59354 & 14445 completed NASREEN ESQUIVEL 100 [facility] 100, [place], [address], [place] [facility] 11/26/2023 15:13:54 Kidney Stone Removal completed Edith Dee [place] - [facility] 01/15/2024 09:02:15 Imaging Results None recorded. Procedure [...] ear solution 07/17 completed Medicati on ID: [id number] D uration Value: 7 Brand Name: neomycin [...] mg tablet 07/17 completed Medicati on ID: [id number] D uration Value: 30 Brand Name: analia singh Send Method: E-Prescr ibed Sub s Allowed: subs OK Medic ationGen ericName : sildenaf il Not Available Not Available Not Available metformin 1,000 mg tablet active Not Available Not Available Not Available tacrolimu s 0.03 % topical ointment 01/14 completed Medicati on ID: [id number] B rand Name: tacrolim us Send Method: E-Prescr ibed Sub s Allowed: subs OK Medic ationGen ericName : tacrolim us Medic ation ID: [id number] B rand Name: tacrolim us Send Method: E-Prescr ibed Sub s Allowed: subs OK Medic ationGen ericName : tacrolim us Not Available Not Available Not Available clotrimaz ole 1 % topical solution 01/14 completed Medicati on ID: [id number] D uration Value: 14 Prescri bed By Name: TAMERA Johnson nd Name: jackson gomez Method: E-Prescr ibed Sub s Allowed: subs OK Speci al Instruct ion: 5 drops to affected ear twice a day Medi cationGe nericNam e: clotrima zole Med ication ID: [id number] D uration Value: 14 Prescri bed By [...] 4 drop 01/14 completed Medicati on ID: [id number] D uration Value: 14 Prescri bed By Name: TAMERA Johnson nd Name: TobraDex Send Method: E-Prescr ibed Sub s Allowed: subs OK Speci al Instruct ion: 4 drops in affected ear bid Medi cationGe nericNam e: TobraDex Medicat ion ID: [id number] D uration Value: 14 Prescri bed By [...] e Hcl 07/17 completed Medicati on ID: [id number] D uration Value: 30 Brand Name: ranitidi [...] 25 mg tablet active Medicati on ID: [id number] B rand Name: Jardianc e Send Method: [...] juarez [place] - [facility] 01/13/2025 09:00:04 How Many Years Have You Consumed Alcohol? 48 [email or web address] Information not available 01/13/2025 What Type Of Lead Designer Do You Use? None [email or web address] Information not available 01/13/2025 When Did You Quit Smoking? 16+yearssinc elastcigaret te [email or web address] Information not available 01/13/2025 Do You Have Any Pets? No [email or web address] Information not available 01/13/2025 At What Age Did You Start Smoking Tobacco? 17 [email or web address] Information not available 01/13/2025 Are You Passively Exposed To Smoke? No [email or web address] Information not available 01/13/2025 Are There Any Smokers In Your House? No [email or web address] Information not available 01/13/2025 How Much Tobacco Do You Smoke? 1 PPD [email or web address] Information not available 01/13/2025 How Many Years Have You Smoked Tobacco? 17 [email or web address] Information not available 01/13/2025 Sex: Unknown Functional Status Question Answer Note LastModified by Organization Details LastModified Time How many times per week do you consume alcohol? Less than 1 time per week [email or web address] Inform ation not available 01/13/2025 Do you use any illicit or recreational drugs? No [email or web address] Information not available 01/13/2025 Do you or have you ever used any other forms of tobacco or nicotine? No [email or web address] Information not available 01/13/2025 What is your level of alcohol consumption? Occasional Information not available 01/13/2025 What type of noise exposure are you exposed to? noExposureToExcessiveNoise [email or web address] Infor mation not available 01/13/2025 Mental Status None recorded. Family History Nothing Reported. Medical History Condition Response Allergies/Hayfever N Heart Problems N Anxiety N Tonsil Infections N Emphysema N Migraines N Thyroid Problems N Glaucoma N Developmental Delay N Depression N COPD N Nasal or Sinus Problems N Anemia N Immune System Disorder N Anesthesia Complications N Heart Attack (AR) N Other Skin Condition Y Diabetes Y Rhinitis N Bleeding Disorder N Food Allergy N Hearing Loss Y Arthritis N Hyperlipidemia N Cancer N Stroke N Dementia N Nasal polyps N Asthma N Sleep Disorder N High Cholesterol N GERD/Reflux Y Liver Disease N Headaches N Fibromyalgia N Hypertension N Speech Delay N Kidney Disease N Past Encounters Encounter ID Performer Location Encounter Start Date Encounter Closed Date Diagnosis/Indication Diagnosis SNOMED-CT Code Diagnosis ICD10 Code Diagnosis IMO Codes Diagnosis Note [id number] MILA CASTELLON PA-C [facility] [address] [address] 11/26/2023 14:30:42 11/26/2023 15:33:46 Sensorineural hearing loss 44001281 H90.A21 Audiologic al evaluation results:Ri ght ear:Mild to moderate SNHL with excellent speech discrimina tion.Left ear:Mild to profound MHL with excellent speech discrimina tion. Tympanomet ry:Right Ear:Type AdLeft Ear:Type Ad Mixed cond uctive AND sensorineural hearing loss 87382265 H90.A32 [id number] NASREEN SKINNER [place] [facility] [place] [address] [place] [address] [address] 12/25/2023 11:30:20 01/19/2024 14:58:11 Sensorineural hearing loss of bilateral ears 287866763 H90.3 [id number] RICHARD BOND MD [facility] [address] [address] 01/15/2024 08:57:42 01/15/2024 09:19:03 Adhesive middle ear disease 8599687 H74.13 Mixed cond uctive AND sensorineural hearing loss 49584959 H90.A32 Partial lo ss of ear ossicles 57238577 H74.323 Bilateral disorder of Eustachian tubes 5505526934 819363 H69.83 Sensorineu ral hearing loss in right ear 2171036744 9100 H90.A21 [id number] NASREEN SKINNER [facility] [address] [address] 11/01/2024 10:53:58 11/02/2024 18:32:20 Sensorineural hearing loss of bilateral ears 404382250 H90.3 [id number] RICHARD BOND MD [facility] [address] [address] 01/13/2025 08:50:38 01/13/2025 09:23:47 Adhesive middle ear disease 4270082 H74.13 Partial lo ss of ear ossicles 59280330 H74.323 Bilateral disorder of Eustachian tubes 8486676474 767164 H69.83 Sensorineu ral hearing loss in right ear 4184389015 9100 H90.A21 Mixed cond uctive AND sensorineural hearing loss 80160742 H90.A32 Otorrhea of left ear 578 3252873 998508 H92.12 [id number] Health Concerns Section Related Observation LastModified by Organization Detai ls LastModified Time None Recorded Concern Status LastModified by Organization Details LastModified Time None Recorded Advance Directives Directive None Recorded Payers Insurance Date Sequence Insurance Name Policy Number Policy Elliott Covered Member ID Elliott Member ID Guarantor Name 01/13/2025 1 NEREYDA (PPO) [id number] Jolene S Sugey [id number] 11/01/2024 1 [employer]-IMANI ARGUETA (PPO) [id number] Jolene S Sugey [id number] Sugey Notes Date Note Type Note Provider Name and Address Organization Details Recorded Time 4 text/html ROS as noted in the HPI 63-year-old male with longstanding ETD presents following eustachian tube dilation with Dr. Bond. He has not noticed much difference in his hearing but is overall doing well. Has hearing aids which she is very pleased with. JOY RUSSELL MD 100 [facility],[place] [address], [place], [address], [place] - [facility] 11/26/2023 16:45:36 4 text/html Update post op [...] he has been making many trips to [facility] to visit. NASREEN SKINNER 100 [facility],[place] [address], [place], [address], [facility] - [facility] 12/25/2023 13:01:21 4 text/html Pt with history [...] in either ear. RICHARD BOND MD 100 [facility],[place] [address], [place], [address], [facility] - [facility] 01/15/2024 09:20:18 5 text/html C/o aids slipping [...] with a kitchen remodel. NASREEN SKINNER 100 [facility],[place] [address], [place], [address], [place] - [facility] 11/01/2024 10:59:02 text/html Pt with history of [...] audiogram October 2023. RICHARD BOND MD 100 [facility],[place] [address], [place], [address], [facility] - [facility] 01/13/2025 09:24:39
--- OUTSIDE RECORDS SUMMARY | 2025-06-20 08:01 | XMS_ITS | Data Portability ---
Author Organization [place] - [facility] Address [address] [place] [address] Care Team Providers Care Regrader Name Role Phone LOBO MITCHELL Primary Care Provider Assessment Encounter Date Assessment Date Assessment LastModified by Organization Details LastModified Time 08/11/2020 08/11/2020 Overview/History : This is a 60-year-old male who is new to [facility] with a past medical history significant for [...] after care of this patient according to [facility]'s infection prevention protocols. Time On Scene with [...] By Organization Details Last Modified Time 08/11/2020 [id number] Pre printed instructions provided. What is coronavirus disease 2019? Coronavirus disease 2019 (COVID-19) is a respiratory illness that can spread from person to person. The virus that causes COVID-19 is a novel coronavirus that was first identified during an investigation into an outbreak in [facility]. Can I get COVID-19? Yes. COVID-19 is [...] least 20 seconds. Use an alcohol-based hand watchmaking teacher that contains at least 60% alcohol if [...] relieve symptoms. FOR MORE INFORMATION: WWW.CDC.GOV/COVID1 9 [email or web address] Not available 08/11/2020 17:22:28 Reason for Referral None Reported. Procedures Surgical History Date Name Laterality Status Provider Name and Address Organization Details Recorded Time 08/11/19 21 Medication Review completed Betty Wolf NP [address], [place], [address], [place] - [facility] 08/11/2020 16:51:20 Imaging Results None recorded. [...] Smoking Status Never Smoker Betty Wolf NP [address] [place] [address], [address], [place] - [facility] 08/11/2020 16:28:23 How Much Tobacco Do You Smoke? No Information not available 08/11/2020 Sex: Unknown Functional Status None recorded. Mental Status None recorded. Family History Relationship Description Onset Age of this Age Resolved Age Notes LastModified by Organization Details LastModified Time Father Coronary arterioscler osis [email or web address] Not available 2020 17:09:08 Medical History Condition Response Diabetes N Coronary Artery Disease N Cancer N Stroke N Asthma N COPD N Depression N High Cholesterol N Pulmonary Embolism N Hypertension N Kidney Disease N Past Encounters Encounter ID Performer Location Encounter Start Date Encounter Closed Date Diagnosis/Indication Diagnosis SNOMED-CT Code Diagnosis ICD10 Code Diagnosis IMO Codes Diagnosis Note [id number] Betty Wolf NP [facility] [address] [place] [address] 08/11/2020 16:32:53 08/11/2020 18:31:07 COVID-19 880636913 U07.1 Health Concerns Section Related Observation LastModified by Organization Detai ls LastModified Time None Recorded Concern Status LastModified by Organization Details LastModified Time None Recorded Advance Directives Directive None Recorded Payers Insurance Date Sequence Insurance Name Policy Number Policy Elliott Covered Member ID Elliott Member ID Guarantor Name 08/11/2020 1 *SELF PAY* Aly Sugey [id number] Aly Sugey 01/25/2022 1 [employer] [id number] Aly Ashton [id number] Aly Fouke Notes Date Note Type Note Provider Name [...] SOB. Betty Wolf NP [address], [place], [address], [place] [facility] 08/11/2020 18:27:47
--- OUTSIDE RECORDS SUMMARY | 2025-06-20 08:01 | XMS_ITS | Clinical Summary ---
Author Organization [facility] Address [address] [place] [address] Care Team Providers Care Supervisor Uranium Processing Name Role Phone Unavailable Primary Care Provider Unavailabl e Social History Tobacco Use Types Packs/Day Years Used Date Smoking Tobacco: Never Assessed Sex and Gender Information Value Date Recorded Sex Assigned at Not on file Legal Sex Male 6:49 AM EST Gender Identity Not on file Sexual Orientation Not on file Plan of Treatment Not on file
== END 2025-06-20 07:58 | disposition home or self-care (01) ==
LOC: HO.US 07:57
PROVIDERS: PCP Internal Medicine; Visit Provider Internal Medicine
DX: R79.89 Other specified abnormal findings of blood chemistry (principal)
CPT/HCPCS: 76705

== ENCOUNTER → 2025-06-20 07:58 | Outpatient (BNV) | payer BC, SELFPAY | PROVIDERS: PCP Internal Medicine; Visit Provider Radiology Diagnostic Radiology | DX: K83.8 Other specified diseases of biliary tract (principal) | CPT/HCPCS: 76705 ==